=== PATIENT | female | born 1975 | race Two or more races ===

== ENCOUNTER 2020-06-20 12:13 | Emergency (ER) | payer OTHER ==
[~2020-06-20] VITALS: Ht 170.2 cm; Wt 95.3 kg
[2020-06-20 12:21] VITALS: BP 139/92
[2020-06-20] MEDS ORDERED: METHOCARBAMOL 500 MG TAB PO ONE (14:00)
[2020-06-20] MEDS ORDERED: IBUPROFEN 800 MG TAB PO ONE (14:00)
== END 2020-06-20 14:17 | disposition home or self-care (01) ==
LOC: ER 12:13
DX: S16.1XXA Strain of muscle, fascia and tendon at neck level, initial encounter (principal); S39.012A Strain of muscle, fascia and tendon of lower back, initial encounter; V43.52XA Car driver injured in collision with other type car in traffic accident, initial encounter; Y93.89 Activity, other specified; Y92.89 Other specified places as the place of occurrence of the external cause; Y99.8 Other external cause status
CPT/HCPCS: 72040